=== PATIENT | male | born 1970 | race Caucasian/White ===

== ENCOUNTER 2019-11-19 22:47 | Emergency (ER) | payer BC ==
[2019-11-19] MEDS ORDERED: SODIUM CHLORIDE 1,000 ML IV ONE (22:55)
[2019-11-19] MEDS ORDERED: KETOROLAC TROMETHAMINE 30 MG/1 ML VIAL IVPUSH ONE (22:55)
--- NOTE | 2019-11-19 22:57 | PDOC ---
History of Present Illness - General Chief Complaint: Pain, Acute Stated Complaint: LT FLANK PAIN Time Seen by Provider: 11/19/19 22:50 History Source: Patient Exam Limitations: No Limitations - History of Present Illness Initial Comments: 11/19/19 22:53 This is a 49-year-old male who comes in complaining of left flank pain that is been intermittent x1 day but worse this evening. Patient said he has a history of kidney stones in the past but the pain when he had a had kidney stone in the past was worse. Patient said is some associated mild nausea but no vomiting. Patient said pain does radiate down into his testicles. Patient denies any hematuria. Patient denies any fevers, chills or diarrhea. Allergies: as per nursing notes Past Medical History: none Social history: Lives with family. No smoking. No alcohol. No illicit drugs. Surgical history: None General: No fevers or chills, no weakness, no weight loss HEENT: No change in vision. No sore throat,. No ear pain CardioVascular: no chest discomfort. No shortness of breath Respiratory:No cough, or wheezing. Gastrointestinal: no nausea, vomiting, diarrhea or constipation, No rectal bleeding Genitourinary: No dysuria, hematuria, or frequency Musculoskeletal: No joint or muscle pain or swelling Neurologic: No headache, vertigo, dizziness or loss of consciousness Psychiatric: nor depression Skin: No rashes or easy bruising Endocrine: no increased thirst or abnormal weight change Allergic: no skin or latex allergy All other systems reviewed and normal GENERAL: The patient is awake, alert, and fully oriented, in no acute distress. HEAD: Normal with no signs of trauma. EYES: Pupils equal, round and reactive to light, extraocular movements intact, sclera anicteric, conjunctiva clear. Abdomen: There is some mild left flank pain otherwise no abdominal pain, there is no CVA pain EXTREMITIES:atraumatic, Normal range of motion, no edema. NEUROLOGICAL: Normal speech, normal gait. PSYCH: Normal mood, normal affect. SKIN: Warm, Dry, normal turgor, no rashes or lesions noted. : This is a 49-year-old male with left flank pain history of renal colic. Patient work-up initiated including CBC, comp, CAT scan to rule out kidney stone , pain meds and IV fluids. 11/20/19 00:45 Assessment and plan: Patient said he feels better. Patient's work-up was normal including a CAT scan that showed no acute pathology. There was a very small stone still within the left kidney but no stone in the ureter or evidence of your urinary ureteral stones. Patient told to take ibuprofen for the pain as needed and follow-up with his primary care doctor next week Past History - Past Medical History Allergies/Adverse Reactions: Allergies Allergy/AdvReac Type Severity Reaction Status Date / Time No Known Allergies Allergy Verified 02/04/16 14:56 Home Medications: Ambulatory Orders NK [No Known Home Medication] 11/19/19 - Immunization History Td Vaccination: No Immunization Up to Date: Yes - Psycho Social/Smoking Cessation Hx Smoking Status: No Smoking History: Current some day smoker Have you smoked in the past 12 months: Yes Number of Cigarettes Smoked Daily: 5 'Breaking Loose' booklet given: 02/04/16 Hx Alcohol Use: No Drug/Substance Use Hx: No Substance Use Type: None ED Treatment Course - LABORATORY CBC & Chemistry Diagram: 11/19/19 23:10 11/19/19 23:10 Discharge - Discharge Information Problems reviewed: Yes Clinical Impression/Diagnosis: Left flank pain Condition: Stable Disposition: HOME - Admission No - Follow up/Referral Referrals: Ghislaine Valentin MD [Primary Care Provider] - - Patient Discharge Instructions Additional Instructions: Take naproxen 2 tablets twice a day as needed for pain. Return to the emergency department immediately with ANY new, persistent or worsening symptoms. Continue any medications as previously prescribed by your physician. You should follow up with your primary doctor as soon as possible regarding today's emergency department visit. . Please make sure your doctor reviews the results of your emergency evaluation. Thank you for coming to the Emergency Department today for your care. It was a pleasure to see you today. Please note that your evaluation is INCOMPLETE until you follow-up with your doctor. - Post Discharge Activity
[2019-11-19] MEDS ORDERED: KETOROLAC TROMETHAMINE 30 MG/1 ML VIAL ONE (22:58)
[2019-11-19 23:04] VITALS: BP 136/86; PULSE 60; TEMP 98; BMI 31.2
[2019-11-19 23:21] LABS: HEMATOCRIT 48.8 % (35.4-49); HEMOGLOBIN 16.6 GM/dl (11.7-16.9); LYMPH % 30.7 % (8-40); MCH 33.4 pg (25.7-33.7); MEAN PLT VOLUME 8.6 fl (7.5-11.1); MONO % 7.6 % (3.8-10.2); NEUT % 57.7 % (42.8-82.8); PLATELET COUNT 212 K/MM3 (134-434); RBC 4.98 M/mm3 (4.00-5.60); RDW 12.6 % (11.9-15.9); WHITE BLOOD COUNT 7.6 K/mm3 (4.0-10.8)
[2019-11-19 23:29] LABS: ALBUMIN 4.1 g/dl (3.4-5.0); BILIRUBIN,TOTAL 0.7 mg/dl (0.2-1); CALCIUM 9.8 mg/dl (8.5-10); CREATININE 1.3 mg/dl (0.55-1.3); POTASSIUM 4.5 mmol/L (3.5-5.1); TOT PROT 7.4 g/dl (6.4-8.2)
== END 2019-11-20 00:51 | disposition home or self-care (01) ==
LOC: FER 22:47
PROC: 3E0333Z Introduction of Anti-inflammatory into Peripheral Vein, Percutaneous Approach (ICD-10-PCS; principal; 2019-11-19)
DX: R10.32 Left lower quadrant pain (principal); F17.210 Nicotine dependence, cigarettes, uncomplicated
CPT/HCPCS: 36415; 74176-TC; 80053; 85025; 99283-25; J7030

== ENCOUNTER 2023-04-30 20:17 | Emergency (ER) | payer BC ==
[2023-04-30 20:23] VITALS: BP 158/90; PULSE 78; RESP 16; TEMP 98.7; BMI 33.7
[2023-04-30] MEDS ORDERED: CLINDAMYCIN HCL 300 MG CAPSULE PO ONE (22:24)
[2023-04-30] MEDS ORDERED: CLINDAMYCIN HCL 150 MG CAPSULE (FP) ONE (22:27)
== END 2023-04-30 22:40 | disposition home or self-care (01) ==
LOC: FER 20:17
DX: L03.116 Cellulitis of left lower limb (principal)
CPT/HCPCS: 93971-TC; 99284-25